=== PATIENT | male | born 1995 | race Hispanic/Latino ===

== ENCOUNTER 2017-10-07 14:00 | Outpatient (RCR) | payer OTHER | END 2017-10-10 | LOC: PT 14:00 | PROVIDERS: ATTEND Specialist | DX: S92.401A Displaced unspecified fracture of right great toe, initial encounter for closed fracture (principal); S97.111A Crushing injury of right great toe, initial encounter | CPT/HCPCS: 97010; 97110 ×7; 97116; 97140 ×4; 97161; G8978; G8979 ==